=== PATIENT | female | born 1975 | race Two or more races ===

== ENCOUNTER 2016-08-22 14:43 | Inpatient (IN) | payer MEDICAID ==
[~2016-08-22] VITALS: Ht 165.1 cm; Wt 81.6 kg
[2016-08-22 16:52] VITALS: BP 126/87
[2016-08-22 18:33] VITALS: BP 134/37
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
[2016-08-22] MEDS ORDERED: Norco 5mg/325mg tab ORAL ONE (21:15)
[2016-08-22] MEDS ORDERED: Lidocaine 1% Plain 30 ml INJ ONE (21:18)
[2016-08-22 22:30] VITALS: BP 138/56
[2016-08-22] MEDS ORDERED: CYMBALTA20 MG ORAL (23:32)
[2016-08-22] MEDS ORDERED: CELEBREX50 M1 ORAL (23:33)
[2016-08-23] MEDS ORDERED: Acetaminophen 500mg (ES) tab ORAL PRN (00:45)
[2016-08-23] MEDS ORDERED: Lidocaine 1% Plain 30 ml INJ ONE (01:00)
[2016-08-23] MEDS ORDERED: Heparin 2000 units/Ns 1000ml INJ ONE (01:00)
[2016-08-23] MEDS: Norco 5mg/325mg tab ORAL PRN ×2 (04:08→15:04)
[2016-08-23 08:15] VITALS: BP 120/66
[2016-08-23] MEDS ORDERED: Ketorolac 30mg Inj IM PRN (09:00)
[2016-08-23] MEDS ORDERED: Heparin 5000 units/ml inj SUBQ SCH (09:00)
[2016-08-23] MEDS ORDERED: Vancomycin 1 GM in D5W 275 ML IVPB ONE (09:00)
--- NOTE | 2016-08-23 09:37 | History & Physical ---
History and Physical History & Physicial Dictation is completed 1- Left upper extremity edema 2- cellulitis of LUE !? 3- Narcotic seeking behavior 4- FM 5- Anxi-Depre 6- refusal of care Plan: No advance in current Narcotic pain managment Psych and ID consulted Gen Fallon MD August 23, 2016 09:37
[2016-08-23] MEDS ORDERED: Vancomycin 1.25 GM in D5W 275 ML IVPB SCH (09:45)
--- NOTE | 2016-08-23 21:00 | History and Physical Report ---
DATE OF ADMISSION: 08/22/2016 SOURCE OF INFORMATION: The patient and EMR. HISTORY OF THE PRESENT ILLNESS: The patient is a 40-year-old female complaining of diffuse swelling of the left upper extremity. The patient reported that this happened in the previous hospital that she was admitted. She refuses to provide the name of the hospital. She reported that and this happened she checked out AMA and she came to our hospital. After the communication with the patient's insurance, there was a plan for transfer of patient to different hospital. However, the patient refuses to go to different hospital. At the time of evaluation, the patient is asking for narcotics especially Dilaudid. She reports that she has taken Dilaudid at home. However, she prefers not to disclose the contact information of the provider at this time. The patient has refused to do blood work in the ER therefore no information at this time. PAST MEDICAL HISTORY: Rheumatoid arthritis and fibromyalgia. PAST SURGICAL HISTORY: ALLERGIES: NKDA. HOME MEDICATIONS: Dilaudid 2 mg p.o. (cannot be verified), the name of the remaining medications and the name of the outpatient provider cannot be verified as the patient refuses to provide any information. SOCIAL HISTORY: The patient denies history of illicit drug abuse, smoking, or alcohol abuse. The patient reported that has 1 child that has . The patient reported that had been incarcerated in the past. PHYSICAL EXAMINATION: VITAL SIGNS: Positive pulse rate 100, blood pressure 120/60, temperature 98.2 degrees, and pulse ox 98% on room air. HEAD AND NECK: Atraumatic and normocephalic. CHEST: Clear to auscultation. HEART: S1 and S2. Regular rate and rhythm. ABDOMEN: Soft. No organomegaly. MUSCULOSKELETAL: Diffuse swelling on the left upper extremity. NEUROLOGIC: The patient is awake, alert and oriented x3. PSYCHIATRIC: Mood and affect are anxious and depressed. LABORATORY DATA: Cannot be obtained secondary to patient's refusal. Prior medical records to be reviewed, cannot be obtained secondary to patient's refusal. IMAGING STUDIES: Positive for duplex of the upper extremity. Positive for brachial vein thrombosis and obstruction in the proximal segment. ASSESSMENT: 1. Iatrogenic left upper extremity superficial vein thrombosis. 2. Left upper extremity superficial cellulitis/a probable diagnosis that cannot be excluded. 3. Refusal of medical care. 4. Refusal of providing medical information. 5. Narcotic drug-seeking behavior. 6. Fibromyalgia. 7. Anxiety and depression. 8. Gastrointestinal and deep vein thrombosis prophylaxis. PLAN OF CARE: Infectious Disease, Dr. Nickerson and psychiatric doctor Dr. Thompson have been notified and consulted. I had about 30 minutes conversation with the family and with the patient's inpatient healthcare regarding the need for reviewing of medical records and the results of blood work prior to administration of any better and more precise care. The patient understood, however, reported that to protect the safety, we will preserve the rights to keep the identity of the outside providers. Agreed with the continuation of current antibiotic. Gen Fallon M.D. DR: TERRENCE JOB#: [id number] CC:
--- NOTE | 2016-08-25 13:05 | Discharge Summary ---
Discharge Summary Hospital Course Date of Admission August 22, 2016 at 20:25 Date of Discharge August 23, 2016 at 19:39 Admitting Diagnosis cellulitis vs thrombophlebitis HPI Vernell Condon is a 40 year old female who was admitted on August 22, 2016 at 20: 25 for Cellulitis Vs Thrombophlebitis Hospital Course dc summary #[id number] Discharge Discharge Disposition Patient left AMA Discharge Diagnoses: Discharge Instructions Discharge Instructions Special Instructions I have been assigned to complete a D/C Summary on this account. I was not involved in the patient management Cara Meier NP ([place]) August 25, 2016 13:04
--- NOTE | 2016-08-25 21:22 | Diagnostic Imaging Report ---
APPROVED REPORT CPT Code: 47124 Present Symptoms Upper Extremity Pain: Left Upper Extremity Edema: Left Comments: PICC line placed in left brachial vein 08/18/2016. LEFT UPPER EXTREMITY: Imaging reveals acute thrombus in the axillary vein at underarm level and acute thrombus in the brachial vein (thrombosed PICC line) at upper arm level. Imaging also reveals patency of the internal jugular, subclavian, and distal brachial veins. The cephalic vein is patent. The basilic vein is also thrombosed at the upper arm level. The remaining segments of the basilic vein are within normal limits. Dr. Brown was informed of abnormal results at 17:15 hrs.
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
== END 2016-08-23 19:39 | disposition left against medical advice (07) | DRG 197 ==
LOC: EMR 16:09 → 4E 20:25 → EDBEDREQ 20:56
DX: I82.612 Acute embolism and thrombosis of superficial veins of left upper extremity (principal); L03.114 Cellulitis of left upper limb; F41.8 Other specified anxiety disorders; M79.7 Fibromyalgia; M06.9 Rheumatoid arthritis, unspecified; Z91.19 Patient's noncompliance with other medical treatment and regimen; Z76.5 Malingerer [conscious simulation]
CPT/HCPCS: 93971